=== PATIENT | female | born 1980 | race African-American/Black ===

== ENCOUNTER 2017-04-04 13:04 | Emergency (ER) | payer MEDICAID ==
[~2017-04-04] VITALS: Ht 170.2 cm; Wt 65.8 kg
[2017-04-04] MEDS ORDERED: MECLIZINE HCL 12.5 MG TABLET PO ONE (14:30)
[2017-04-04] MEDS ORDERED: IV NS 0.9% 1,000 ML BAG IV ONE (14:30)
[2017-04-04] MEDS ORDERED: IV NS 0.9% 1,000 ML ONE (14:39)
[2017-04-04] MEDS ORDERED: MECLIZINE HCL 25 MG TABLET ONE (14:39)
[2017-04-04] MEDS ORDERED: IV SET PRIMARY 1 EA INFUS.SET MC ONE (14:39)
[2017-04-04 14:42] LABS: BASOPHILS # (AUTO) 0.1 /CMM (0.0-0.2); BASOPHILS % (AUTO) 1.3 % (0.0-2.0); EOSINOPHILS # (AUTO) 0.1 /CMM (0.0-0.7); EOSINOPHILS % (AUTO) 2.5 % (0.0-6.0); HEMATOCRIT 41 % (33-45); HEMOGLOBIN 14.1 g/dL (11.5-14.8); LYMPHOCYTES # (AUTO) 1.5 /CMM (0.8-4.8); LYMPHOCYTES % (AUTO) 30.2 % (20.0-44.0); MEAN CORPUSCULAR HEMOGLOBIN 30 PG (26.0-33.0); MEAN CORPUSCULAR HGB CONC 34 g/dl (31.0-36.0); MEAN CORPUSCULAR VOLUME 87 fL (82-100); MONOCYTES # (AUTO) 0.3 /CMM (0.1-1.30); MONOCYTES % (AUTO) 6.8 % (2.0-12.0); NEUTROPHILS % (AUTO) 59.2 % (43.0-81.0); PLATELET COUNT (AUTO) 200 /CMM (150-450); RDW COEFFICIENT OF VARIATION 13.2 (11.5-15.0); RED BLOOD CELL COUNT(AUTO) 4.74 MIL/uL (4.0-5.2)
[2017-04-04 14:51] LABS: CALCIUM, SERUM 8.7 mg/dL (8.5-10.1); CREATININE 0.8 mg/dL (0.6-1.3)
--- NOTE | 2017-04-04 15:17 | NUR ---
PT TRANSPORTED TO CT IN STABLE CONDITION VIA WHEELCHAIR
[2017-04-04 16:09] VITALS: BP 128/77
--- NOTE | 2017-04-04 16:09 | NUR ---
Patient discharged to home in stable condition. Written and verbal after care instructions given. Patient verbalizes understanding of instruction. IV removed. Catheter intact and site benign. Pressure and 4x4 applied to site. No bleeding noted. AMBULATORY WITH STEADY GAIT.
== END 2017-04-04 16:10 | disposition home or self-care (01) ==
LOC: ER 13:08
DX: R51 Headache (principal); F41.9 Anxiety disorder, unspecified; F41.0 Panic disorder [episodic paroxysmal anxiety]; R53.1 Weakness; H53.149 Visual discomfort, unspecified
CPT/HCPCS: 36415; 70450; 80048; 84703; 85025; 96360; 99285; A4606; J7030; J8597; Z7610

== ENCOUNTER 2017-04-12 18:50 | Emergency (ER) | payer MEDICAID, OTHER ==
[~2017-04-12] VITALS: Ht 172.7 cm; Wt 63.5 kg
[2017-04-12 18:50] VITALS: BP 111/76
== END 2017-04-12 19:28 | disposition home or self-care (01) ==
LOC: ER 18:51
DX: R42 Dizziness and giddiness (principal)
CPT/HCPCS: 99282; A4606; Z7610

== ENCOUNTER 2017-04-17 18:32 | Emergency (ER) | payer OTHER ==
[~2017-04-17] VITALS: Ht 172.7 cm; Wt 86.2 kg
--- NOTE | 2017-04-17 18:55 | NUR ---
Presents self to ed due to dizziness and blurring of vision that has been going on. Per patient she experience occasional eye discomfort/ pressure especially when she's reading. Pt denies using eyeglassess. Patient is aao4. Appears in no apparent distress, respiration even and unlabored. Pt is afebrile. vss.will cont to monitor
--- NOTE | 2017-04-17 18:58 | NUR ---
Md Mattson at bedside
[2017-04-17 19:17] VITALS: BP 125/95
--- NOTE | 2017-04-17 19:17 | NUR ---
Patient discharged to home in stable condition. Written and verbal after care instructions given. Patient verbalizes understanding of instruction.
== END 2017-04-17 19:20 | disposition home or self-care (01) ==
LOC: ER 18:34
DX: R51 Headache (principal)
CPT/HCPCS: A4606; Z7502; Z7610

== ENCOUNTER 2021-02-16 22:17 | Emergency (ER) | payer MEDICAID, OTHER ==
[~2021-02-16] VITALS: Ht 167.6 cm; Wt 61.7 kg
[2021-02-16 22:17] VITALS: BP 120/75
--- NOTE | 2021-02-16 22:20 | NUR ---
BIBSELF C/O NASAL CONGESTION, CHEST TIGHTNESS, GEN BODY PAIN X3 DAYS. PT AAOX4. VITAL SIGNS STABLE. RESPIRATIONS EVEN AND UNLABORED. AMBULATORY WITH STEADY GAIT. NO ACUTE DISTRESS NOTED AT THIS TIME.
--- NOTE | 2021-02-16 22:45 | NUR ---
COVID SWAB COLLECTED AND SENT TO LAB
--- NOTE | 2021-02-16 22:58 | NUR ---
PT SIGNED WAIVER, PLACED IN CHART. RADIOLOGY AT BEDSIDE FOR CXR
== END 2021-02-16 23:53 | disposition home or self-care (01) ==
LOC: ER 22:19
DX: B34.9 Viral infection, unspecified (principal); R05 Cough; R06.02 Shortness of breath; Z20.822 Contact with and (suspected) exposure to COVID-19
CPT/HCPCS: 71045; 87426; 99284; C9803; U0003